=== PATIENT | female | born 1945 | race Caucasian/White ===

== ENCOUNTER → 2016-08-16 | Outpatient (CLI) | payer MEDICARE, MEDICAID | END | disposition home or self-care (01) | LOC: LAB 09:13 | PROVIDERS: ATTEND Internal Medicine Cardiovascular Disease | DX: E83.42 Hypomagnesemia (principal) | CPT/HCPCS: 36415; 83735 ==

== ENCOUNTER → 2016-10-22 | Outpatient (CLI) | payer MEDICARE, MEDICAID | END | disposition home or self-care (01) | LOC: LAB 09:25 | PROVIDERS: ATTEND Internal Medicine Cardiovascular Disease | DX: I49.3 Ventricular premature depolarization (principal) | CPT/HCPCS: 36415; 83735 ==

== ENCOUNTER → 2017-11-27 | Outpatient (CLI) | payer MEDICARE, MEDICAID | END | disposition home or self-care (01) | LOC: LAB 10:02 | PROVIDERS: ATTEND Internal Medicine Cardiovascular Disease | DX: I49.3 Ventricular premature depolarization (principal); E83.42 Hypomagnesemia | CPT/HCPCS: 36415; 83735 ==

== ENCOUNTER → 2018-06-23 | Outpatient (CLI) | payer MEDICARE, MEDICAID | END | disposition home or self-care (01) | LOC: LAB 10:14 | PROVIDERS: ATTEND Internal Medicine Cardiovascular Disease | DX: E83.42 Hypomagnesemia (principal) | CPT/HCPCS: 36415; 83735 ==

== ENCOUNTER → 2018-09-19 | Outpatient (CLI) | payer MEDICARE, MEDICAID ==
[2018-09-19 08:45] LABS: CREATININE 0.8 mg/dL (0.6-1.0); GFR 70.7; MAGNESIUM 1.5 mg/dL (1.8-2.4)
== END | disposition home or self-care (01) ==
LOC: LAB 08:19
PROVIDERS: ATTEND Internal Medicine Cardiovascular Disease
DX: E83.42 Hypomagnesemia (principal)
CPT/HCPCS: 36415; 82565; 83735

== ENCOUNTER → 2018-11-21 | Outpatient (CLI) | payer MEDICARE, MEDICAID | END | disposition home or self-care (01) | LOC: LAB 08:53 | PROVIDERS: ATTEND Internal Medicine Cardiovascular Disease | DX: E83.42 Hypomagnesemia (principal) | CPT/HCPCS: 36415; 83735 ==

== ENCOUNTER → 2020-01-08 | Outpatient (CLI) | payer MEDICARE, MEDICAID | LOC: LAB 12:38 | PROVIDERS: ATTEND Internal Medicine Cardiovascular Disease | DX: E83.42 Hypomagnesemia (principal) | CPT/HCPCS: 36415; 83735 ==

== ENCOUNTER 2020-03-06 08:56 | Emergency (ER) | payer MEDICARE, MEDICAID ==
[~2020-03-06] VITALS: Ht 157.5 cm; Wt 118.1 kg
[2020-03-06 09:02] VITALS: BP 137/93
--- NOTE | 2020-03-06 09:02 | PHYS DOC ---
Past History Past Medical History: Diabetes, High Cholesterol, Heart Disease, Hypertension, Hypothyroid Past Surgical History: No Surgical History Smoking: Non-smoker Alcohol Use: None Drug Use: None Adult General HPI HPI Patient is a 74-year-old female who presents with dental pain. Patient had x1 bottom left molar extraction 6 days ago and reports having ongoing pain ever since. No fever, no other constitutional symptoms, no fluctuant mass or any signs or symptoms of infection/abscess. Has been taking Aleve for as needed pain and using warm mouth rinses as instructed by her dentist. She is here for pain control Review of Systems Review of Systems Fourteen body systems of review of systems have been reviewed. See HPI for pertinent positives and negative responses, other gibson all other systems are negative, non-pertinent or non-contributory Physical Exam Physical Exam Constitutional: Well developed, well nourished, no acute distress, non-toxic appearance. HENT: Normocephalic, atraumatic, bilateral external ears normal, oropharynx moist, no oral exudates, nose normal. Poor dentition. Surgically removed tooth with red otherwise well-appearing socket and surrounding gumline at tooth #19, patient's bottom left molar without any exudate, fluctuant mass, discharge, crepitus, or other concerning signs indicative of potential infection Eyes: PERRLA, EOMI, conjunctiva normal, no discharge. Neck: Normal range of motion, no tenderness, supple, no stridor. Cardiovascular: Heart rate regular, sinus rhythm, no murmurs rubs or gallops Lungs & Thorax: Bilateral breath sounds clear to auscultation Abdomen: Bowel sounds normal, soft, no tenderness, no masses, no pulsatile masses. Nonsurgical abdomen, no peritoneal signs Skin: Warm, dry, no erythema, no rash. Back: No tenderness, no CVA tenderness. Extremities: No tenderness, no cyanosis, no clubbing, ROM intact, no edema. Neurologic: Alert and oriented X 3, grossly normal motor & sensory function, no focal deficits noted. Psychologic: Affect normal, judgement normal, mood normal. EKG EKG [] Radiology/Procedures Radiology/Procedures [] Heart Score Risk Factors: Risk Factors: DM, Current or recent (<one month) smoker, HTN, HLP, family history of CAD, obesity. Risk Scores: Risk Factors: DM, Current or recent (<one month) smoker, HTN, HLP, family history of CAD, obesity. Course & Med Decision Making Course & Med Decision Making Pertinent Labs and Imaging studies reviewed. (See chart for details) Discussed most likely diagnosis of pain related to recent tooth extraction, no signs or symptoms concerning of acute infection and/or abscess, discussed no indication for antibiotics at this time Patient using Aleve as needed for pain control. Advised patient incorporate Tylenol into a scheduled routine. I discussed potential need for future opioid prescription but joint decision to defer at this time given patient's age, risk factors and fact that she lives alone Patient to call dentist first thing tomorrow morning to schedule outpatient follow-up for repeat evaluation in upcoming 72 hours Strict return precautions were discussed with good understanding by patient, all questions and concerns addressed prior to ER departure in stable condition Dragon Disclaimer [place] Disclaimer This electronic medical record was generated, in whole or in part, using a voice recognition dictation system. Departure Departure: Impression: Primary Impression: Pain, dental Disposition: 01 DC HOME SELF CARE/HOMELESS Condition: STABLE Referrals: SUNNY LANGFORD MD (PCP) Patient Instructions: Acetaminophen tablets or caplets, Dental Pain Additional Instructions: As instructed prior to ER departure, please call your dentist first thing tomorrow morning to schedule outpatient follow-up in upcoming 72 hours If any concerning signs or symptoms of disease such as fever, chills, drainage or development of a fluctuant mass arise prior to outpatient follow-up please do not hesitate to represent for repeat evaluation It was a pleasure to take care of you and I wish you a speedy recovery MAUREEN TORO DO Mar 06, 2020 09:02
[2020-03-06] MEDS ORDERED: ACETAMINOPHEN 325 MG TABLET PO ONE (09:15)
== END 2020-03-06 09:45 | disposition home or self-care (01) ==
LOC: ER 08:56
DX: K08.89 Other specified disorders of teeth and supporting structures (principal); E11.9 Type 2 diabetes mellitus without complications; E78.00 Pure hypercholesterolemia, unspecified; I11.9 Hypertensive heart disease without heart failure; E03.9 Hypothyroidism, unspecified
CPT/HCPCS: 99282

== ENCOUNTER → 2020-07-28 | Outpatient (CLI) | payer MEDICARE, MEDICAID ==
--- NOTE | 2020-07-28 11:59 | RAD ---
CT Head without contrast 07/28/2020 11:21 AM Indication: Reason: HEADACHE X 1 MONTH RIGHT FRONTAL REGION / Spl. Instructions: / History: Comparison: None Findings: No intracranial hemorrhage is seen. No evidence of acute territorial infarct is seen. Note that CT is limited in sensitivity for acute ischemia. Mild senescent Age-related atrophic changes are noted. Mild patchy periventricular and deep white matter hypoattenuation which is nonspecific, but m ost commonly relates to chronic small vessel disease. No abnormal extra axial fluid collection is id entified. No mass effect or midline shift is seen. No acute osseous abnormalities are seen. Impression: 1. No acute intracranial process identified 2. Mild senescent changes as described CT DOSING PQRS STATEMENT: One or more of the following individualized dose reduction techniques were utilized for this examinat ion: 1. Automated exposure control 2. Adjustment of the mA and/or kV according to patient size 3. Use of iterative reconstruction technique Electronically signed by: Syed Fajardo MD (07/28/2020 11:57 AM) [id number]
== END ==
LOC: CT 11:08
PROVIDERS: ATTEND Family Medicine
DX: R51.9 Headache, unspecified (principal)
CPT/HCPCS: 70450

== ENCOUNTER → 2020-12-21 | Outpatient (CLI) | payer MEDICARE, MEDICAID | LOC: LAB 09:29 | PROVIDERS: ATTEND Internal Medicine Cardiovascular Disease | DX: E83.42 Hypomagnesemia (principal) | CPT/HCPCS: 36415; 83735 ==

== ENCOUNTER → 2021-01-23 | Outpatient (CLI) | payer MEDICARE, MEDICAID ==
--- NOTE | 2021-02-13 12:20 | RAD ---
EXAM: Right breast sonogram. HISTORY: 75-year-old female presents with breast pain. The patient reports that the pain is reported to the tightness of her bra. There is no palpable lump. TECHNIQUE: Sonographic imaging of the right breast targeted to the site of reported pain at the 9:00 and 3:00 positions was performed. COMPARISON: Correlation is made with report from a mammogram performed at an outside facility on 08/26. FINDINGS: There is no suspicious finding in the region of concern. There is a benign-appearing right axillary lymph node. IMPRESSION: 1. Unremarkable sonographic imaging of the right breast targeted to the site of reported pain. 2. BI-RADS Category 2: Benign finding(s). Continued clinical follow-up of palpable abnormality is rec ommended. Repeat imaging can be performed if there is continued concern. The patient will be due for bilateral mammography in 7 months according to a previously established bilateral mammography interva lMinna Electronically signed by: Lis Pearl MD (02/13/2021 12:18 PM) [id number]
== END ==
LOC: US 12:51
PROVIDERS: ATTEND Family Medicine
DX: N64.4 Mastodynia (principal)
CPT/HCPCS: 76642

== ENCOUNTER → 2021-10-05 | Outpatient (CLI) | payer MEDICARE, MEDICAID ==
--- NOTE | 2021-10-05 16:28 | RAD ---
DXA BONE DENSITY AXIAL History: Reason: OSTEOPOROSIS / Spl. Instructions: / History: Postmenopausal Comparison: None. TECHNIQUE: Dual energy x-ray absorptiometry of the lumbar spine and right hip was performed. T-score of average bone mineral density based was calculated based on standard deviations above or below the expected young adult normal value. Diagnostic definitions were established by the [employer] z[employer]. FINDINGS: The average bone mineral density associated with L1-L4 is 1.229 g/cm^2, corresponding with a T-score of 0.4. The average total bone mineral density associated with right hip is 0.994 g/cm^2, corresponding with a T-score of 0.3. Refer to the worksheets for full detail. IMPRESSION: 1. Normal. Average bone mineral density yields a T-score of -1.0 or greater. Fracture risk is low. Electronically signed by: Jaron Almaguer DO (10/05/2021 4:26 PM) [id number]
--- NOTE | 2021-10-05 17:19 | RAD ---
Digital Mammogram Bilateral History: Routine screening Technique: 2-D digital CC and MLO views were obtained. CAD - computer aided detection was utilize d. Comparison: Mammograms from 05/09/2018 and 01/02/2017.. Findings: Breast Tissue Density A. The breasts are almost entirely fatty. There are no suspicious masses, malignant appearing calcifications, or areas of architectural distort ion. There are numerous benign-appearing calcifications. Impression: No evidence of malignancy. Assessment: BI-RADS 2. Benign findings. Recommendation: Routine screening mammograms. The patient will receive a letter with the results in the mail. Patient information will be entered i nto the mammography reminder system with a target recall date for the next mammogram. A reminder yves er will be generated. Electronically signed by: Janice Flores MD (10/05/2021 5:16 PM) [id number]
== END ==
LOC: MAMMO 08:47
PROVIDERS: ATTEND Family Medicine
DX: Z12.31 Encounter for screening mammogram for malignant neoplasm of breast (principal); Z00.00 Encounter for general adult medical examination without abnormal findings; Z78.0 Asymptomatic menopausal state
CPT/HCPCS: 77067; 77080